=== PATIENT | female | born 1990 | race Caucasian/White ===

== ENCOUNTER 2019-05-19 19:22 | Emergency (ER) | payer OTHER ==
[~2019-05-19] VITALS: Ht 149.9 cm; Wt 74.8 kg
[2019-05-19 19:29] VITALS: BP_SYST 124
--- NOTE | 2019-05-19 19:39 | NUR ---
Patient to ER bed 07 to gown for evaluation. Side rails up. Report received from MART Plummer
--- NOTE | 2019-05-19 19:41 | NUR ---
Patient brought in with . Patient recently diagnosed with STD and patient is requesting STD testing. Denies any symptoms or pain. No other complaints/injuries per patient or as noted. Will continue to monitor.
--- NOTE | 2019-05-19 19:44 | NUR ---
RENATE Munguia at bedside examining patient.
--- NOTE | 2019-05-19 20:18 | NUR ---
Patient given written and verbal discharge instructions and verbalizes understanding. ER MD discussed with patient the results and treatment provided. Patient in stable condition. ID arm band removed. Patient educated on pain management and to follow up with PMD. Pain Scale 0. Opportunity for questions provided and answered. Medication side effect fact sheet provided.
[2019-05-19 20:21] VITALS: BP_SYST 124
[2019-05-23 04:11] LABS: HEPATITIS A AB, IgM Negative (Negative); HEPATITIS B CORE AB, IgM Negative (Negative); HEPATITIS B SURFACE AG Negative (Negative)
[2019-05-23 18:10] LABS: FTA-Ab (T PALLIDUM) Non Reactive (Non Reactive)
[2019-05-25 10:13] LABS: CHLAMYDIA TRACHOMATIS NAA NEGATIVE (Negative); NEISSERIA GONORRHOEAE NAA NEGATIVE (Negative)
[2019-05-25 10:16] LABS: HSV 2 IgG, TYPE SPECIFIC <0.91
== END 2019-05-19 20:18 | disposition home or self-care (01) ==
LOC: SED 19:22
DX: Z00.00 Encounter for general adult medical examination without abnormal findings (principal); R03.0 Elevated blood-pressure reading, without diagnosis of hypertension
CPT/HCPCS: 36415; 80074; 86592; 86695; 86696; 86780; 87491; 87591; 99283

== ENCOUNTER 2019-06-10 18:57 | Emergency (ER) | payer OTHER ==
[~2019-06-10] VITALS: Ht 149.9 cm; Wt 74.8 kg
[2019-06-10 19:25] VITALS: BP_SYST 109
[2019-06-10 21:55] VITALS: BP_SYST 138
[2019-06-13 01:14] LABS: CHLAMYDIA TRACHOMATIS NAA Negative (Negative); NEISSERIA GONORRHOEAE NAA Negative (Negative)
== END 2019-06-10 21:55 | disposition home or self-care (01) ==
LOC: SED 18:57
DX: A53.9 Syphilis, unspecified (principal)
CPT/HCPCS: 36415; 86592; 87491; 87591; 99283